=== PATIENT | male | born 1985 | race Caucasian/White ===

== ENCOUNTER 2020-11-21 17:58 | Emergency (ER) | payer OTHER ==
[~2020-11-21 17:58] MED LIST: CEFUROXIME500 MG PO; IBUPROFEN800 MG PO
== END 2020-11-21 21:30 | disposition home or self-care (01) ==
LOC: ER1 17:58
DX: B34.9 Viral infection, unspecified (principal); Z20.822 Contact with and (suspected) exposure to COVID-19
CPT/HCPCS: 99283; U0002

== ENCOUNTER 2020-12-21 13:35 | Emergency (ER) | payer OTHER ==
[2020-12-21] MEDS ORDERED: DELSYM30 MG/5 ML PO (18:25)
[2020-12-21] MEDS ORDERED: VENTOLIN HFA 66.7 GM INH (18:25)
== END 2020-12-21 19:58 | disposition home or self-care (01) ==
LOC: ER1 13:35
DX: Z23 Encounter for immunization (principal); U07.1 COVID-19; J12.82 Pneumonia due to coronavirus disease 2019; F17.290 Nicotine dependence, other tobacco product, uncomplicated; Z88.8 Allergy status to other drugs, medicaments and biological substances
CPT/HCPCS: 71045; 87081; 87880; 99284; M0243; U0003